=== PATIENT | female | born 1960 | race African-American/Black ===

== ENCOUNTER 2017-08-05 11:36 | Emergency (ER) | payer OTHER | END 2017-08-05 13:15 | disposition home or self-care (01) | LOC: ER 11:36 | DX: M54.12 Radiculopathy, cervical region (principal); M62.838 Other muscle spasm | CPT/HCPCS: 99283 ==

== ENCOUNTER 2018-07-22 08:05 | Outpatient (CLI) | payer OTHER ==
[~2018-07-22] VITALS: Ht 152.4 cm; Wt 88.5 kg
[2018-07-22] VITALS (7 sets, daily range): BP systolic 122–143; BP diastolic 60–73
[~2018-07-22 08:05] MED LIST: CYCL5TAB PO; HYDR-3164 PO; METH4TAB2 PO
[2018-07-22] MEDS ORDERED: PRED1TAB3 PO (08:23)
[2018-07-22] MEDS ORDERED: ASPI-630 PO (08:23)
[2018-07-22] MEDS ORDERED: NAPR-514 PO (08:23)
[2018-07-22] MEDS ORDERED: GLUC1TAB71 PO (08:23)
[2018-07-22] MEDS ORDERED: CARV3.1210 PO (08:23)
[2018-07-22] MEDS ORDERED: FISH1CAP PO (08:23)
[2018-07-22 09:02] LABS: BASO % 0 % (0-3); EOS # 0.2 x10^3/uL (0.0-0.7); EOS % 3 % (0-3); HEMATOCRIT 35.4 % (36.0-47.0); LYMPH # 2.7 x10^3/uL (1.0-4.8); LYMPH % 47 % (24-48); MEAN CORPUSCULAR HEMOGLOBIN 21 pg (25-35); MEAN CORPUSCULAR HGB CONC 31 g/dL (31-37); MEAN CORPUSCULAR VOLUME 67 fL (79-100); MONO # 0.7 x10^3/uL (0.0-1.1); MONO % 12 % (0-9); NEUT # 2.2 x10^3uL (1.8-7.7); NEUT % 39 % (31-73); PLATELET COUNT 174 x10^3/uL (140-400); RED BLOOD COUNT 5.26 x10^6/uL (3.50-5.40); RED CELL DISTRIBUTION WIDTH 16.1 % (11.5-14.5); WHITE BLOOD COUNT 5.7 x10^3/uL (4.0-11.0)
[2018-07-22 09:33] LABS: PROTHROMBIN TIME PATIENT 12.8 SEC (11.7-14.0)
[2018-07-22] MEDS ORDERED: LIDOCAINE WITH 8.4% SOD BICARB 3 ML DISP.SYRIN. ONE ×2 (09:46→09:58)
[2018-07-22] MEDS ORDERED: fentaNYL PF VIAL 100 MCG/2 ML VIAL ONE (10:25)
[2018-07-22] MEDS ORDERED: MIDAZOLAM HCL/PF 2 MG/2 ML VIAL. ONE (10:25)
[2018-07-22] MEDS ORDERED: LIDOCAINE WITH 8.4% SOD BICARB 3 ML DISP.SYRIN. IJ ONE (11:00)
[2018-07-22] MEDS ORDERED: fentaNYL PF VIAL 100 MCG/2 ML VIAL IV ONE (11:00)
[2018-07-22] MEDS ORDERED: MIDAZOLAM HCL/PF 2 MG/2 ML VIAL. IV ONE (11:00)
--- NOTE | 2018-07-22 11:12 | NUR ---
Pt to IR for R knee procedure, tolerated well, VSS, clean dry dressing intact. JEANNE RN
[2018-07-22 11:28] LABS: ANISOCYTOSIS SLIGHT; MICROCYTOSIS PRESENT; PLT ESTIMATE ADEQUATE (ADEQUATE)
--- NOTE | 2018-07-23 16:15 | RAD ---
Right geniculate nerve radiofrequency ablation 07/22/2018 Indication: Chronic right knee pain. Patient would like to delay total knee arthroplasty. Discussion: The risks and benefits of the procedure were discussed the patient. Informed consent was obtained. Timeout procedure was performed. The right knee was prepped and draped using sterile barrier technique. 1% lidocaine was administered for local anesthesia. Under fluoroscopic guidance 3 needles were advanced into position. On in the superior lateral quadrant, one in the superior medial quadrant, and one in the inferior medial quadrant of the knee. Sensory and motor nerve testing was performed. Additional lidocaine was administered. Radiofrequency ablation was performed. Hustler were removed and manual pressure was held. Sterile dressings were applied. Total fluoroscopy time 5.8 min Dose area product 1 Gycm2 The procedures performed under conscious sedation including continuous cardiopulmonary monitoring via a dedicated sedation nurse. [id number] sedation time 42 minutes Impression: Right geniculate nerve radiofrequency ablation
== END 2018-07-22 12:00 | disposition home or self-care (01) ==
LOC: INTRAD 08:05
PROVIDERS: ATTEND Surgery
DX: M25.561 Pain in right knee (principal); G89.29 Other chronic pain; Z79.01 Long term (current) use of anticoagulants; Z88.0 Allergy status to penicillin; Z88.8 Allergy status to other drugs, medicaments and biological substances; Z91.013 Allergy to seafood
CPT/HCPCS: 36415; 64640; 85025; 85610; 99152; 99153; C1892; J2250; J3010; 76942; 77002